=== PATIENT | female | born 1990 | race Caucasian/White ===

== ENCOUNTER 2019-09-11 23:00 | Inpatient (IN) | payer BC ==
[2019-09-11] MEDS ORDERED: LIDOCAINE 0.5% (PF) 5 MG/ML (50 ML SDV) SQ PRN (23:33)
[2019-09-11] MEDS ORDERED: OXYTOCIN 10 UNIT/ML 1 ML VIAL IM PRN (23:33)
[2019-09-11] MEDS ORDERED: CARBOPROST TROMETHAMINE 250 MCG/ML 1 ML AMP IM PRN (23:33)
[2019-09-11] MEDS ORDERED: METHYLERGONOVINE 0.2 MG/ML 1 ML AMP IM PRN (23:33)
[2019-09-11] MEDS ORDERED: TERBUTALINE 1 MG/ML VIAL SQ PRN (23:33)
[2019-09-11] MEDS: LACTATED RINGERS 1,000 ML IV SCH (23:43)
[2019-09-11] MEDS ORDERED: OXYTOCIN 30 UNITS/500 ML NS 30 UNIT in SALINE 1 500ML.BAG IV SCH (23:45)
[2019-09-11 23:53] LABS: Basophils % (A) 0 %; Eosinophils # (A) 0.2 k/uL (0-0.7); Eosinophils % (A) 2 %; HCT 35.8 % (34.0-46.0); HGB 11.7 gm/dL (11.4-16.0); Lymphocytes # (A) 2.9 k/uL (1.0-4.8); Lymphocytes % (A) 18 %; MCH 28.5 pg (25.0-35.0); MCHC 32.6 g/dL (31.0-37.0); MCV 87.4 fL (80.0-100.0); Monocytes # (A) 0.8 k/uL (0-1.0); Monocytes % (A) 5 %; Neutrophils # (A) 11.5 k/uL (1.3-7.7); Neutrophils % (A) 73 %; Platelet Count 336 k/uL (150-450); RBC 4.09 m/uL (3.80-5.40); RDW 15.5 % (11.5-15.5); WBC 15.7 k/uL (3.8-10.6)
[2019-09-12] MEDS: LACTATED RINGERS 1,000 ML IV SCH (00:13)
[2019-09-12] MEDS ORDERED: ROPIVACAINE 100 MG, fentaNYL (PF) 200 MCG in SODIUM CHLORIDE 0.9% 76 ML EPIDURAL ONE (01:00)
--- NOTE | 2019-09-12 08:42 | P.HPOB ---
History of Present Illness H&P Date: 09/12/19 Chief Complaint: 38-6/7 weeks, spontaneous rupture of membranes The patient is a 29-year-old 2 para 1001 admitted at 38-6/7 weeks by good dating parameters. She is admitted with documented spontaneous rupture of membranes in early active labor with all signs reassuring. Her has been entirely uncomplicated and group B strep status is negative. Obstetrical history: 2 para 1001 with 1 term vaginal delivery without complications. Current statistics are listed in history of present illness. EDC of 09/19/2019 was established by last menstrual period and confirmed by second trimester ultrasound. Laboratory workup demonstrates a bloo d type of A+ with a negative antibody screen. Rubella status is immune. The remainder of the laboratory workup was within normal limits. One hour Glucola was normal and group B strep status is negative. Gynecologic history: Unremarkable with no history of any infections to include STDs. Review of Systems Review of systems is confined to history of present illness. Past Medical History Past Medical History: No Reported History History of Any Multi-Drug Resistant Organisms: None Reported Past Surgical History: No Surgical Hx Reported Additional Past Surgical History / Comment(s): wisdom teeth Past Anesthesia/Blood Transfusion Reactions: No Reported Reaction Past Psychological History: No Psychological Hx Reported Smoking Status: Never smoker Past Alcohol Use History: None Reported Past Drug Use History: None Reported - Past Family History Father Family Medical History: Renal Disease Additional Family Medical History / Comment(s): has one kidney Medications and Allergies Home Medications Medication Instructions Recorded Confirmed Type Ferrous Sulfate [Iron] 325 mg PO DAILY 09/11/19 09/11/19 History Pnv,Calcium 72/Iron/Folic Acid 1 each PO DAILY 09/11/19 09/11/19 History [ Plus Tablet] Allergies Allergy/AdvReac Type Severity Reaction Status Date / Time amoxicillin Allergy Rash/Hives Verified 09/11/19 23:30 cetirizine [From Zyrtec] Allergy Rash/Hives Verified 09/11/19 23:30 sulfamethoxazole Allergy Rash/Hives Verified 09/11/19 23:30 [From Bactrim] trimethoprim [From Bactrim] Allergy Rash/Hives Verified 09/11/19 23:30 Exam Vital Signs Temp Pulse Resp BP Pulse Ox 09/11/19 23:32 96.9 F L 88 17 138/73 98 09/11/19 23:30 96.9 F L 88 17 138/73 98 Intake and Output 09/11/19 09/12/19 09/12/19 22:59 06:59 14:59 Intake Total 2000 Output Total 500 Balance 1500 Intake: IV 2000 Output: Urine 500 Straight 500 Other: # Voids 2 Weight 82.554 kg In general, this is a well-developed, well-nourished white female in no acute distress. Her heart has a regular rhythm and rate without murmur. Her lungs are clear to auscultation bilaterally in all purdy. Her abdomen is gravid, nondistended, has normal active bowel sounds, is soft, nontender, and without any palpable masses aside from the uterine fundus. Her extremities are without any cyanosis, clubbing, or significant edema and are nontender to palpation bilaterally. Digital cervical examination most recently demonstrates her cervix to be 7 cm dilated, approximate 80% effaced, the vertex in presentation at -2 station. Spontaneous rupture of membranes has been documented. Results Result Diagrams: 09/11/19 23:40 Abnormal Lab Results - Last 24 Hours (Table) 09/11/19 Range/Units 23:40 WBC 15.7 H (3.8-10.6) k/uL Neutrophils # 11.5 H (1.3-7.7) k/uL Assessment and Plan (1) Active labor at term Current Visit: Yes Status: Acute Code(s): THQ0645 - SNOMED Code(s): 06168527 (2) Spontaneous rupture of membranes Current Visit: Yes Status: Acute Code(s): XEY0772 - SNOMED Code(s): 811305414 Plan: The patient has been admitted for active management of labor. She had requested an epidural which was placed shortly after admission. Her contractions then did space out through the night requiring Pitocin augmentation this morning. She will continue to have close maternal and surveillance and expectant management will be practiced.
[2019-09-12] MEDS ORDERED: BENZOCAINE/MENTHOL SPRAY 1 GM/SPRAY AEROSOL TOPICAL PRN (10:29)
[2019-09-12] MEDS ORDERED: SIMETHICONE 80 MG CHEWABLE PO PRN (10:29)
[2019-09-12] MEDS ORDERED: ACETAMINOPHEN TAB 325 MG TAB PO PRN (10:29)
[2019-09-12] MEDS ORDERED: IBUPROFEN 600 MG TAB PO PRN (10:29)
[2019-09-12] MEDS ORDERED: diphenhydrAMINE 25 MG CAP PO PRN (10:29)
[2019-09-12] MEDS ORDERED: HYDROcodone/APAP 5-325MG 1 EACH TAB PO PRN (10:29)
[2019-09-12] MEDS ORDERED: HYDROcodone/APAP 7.5-325MG 1 EACH TAB PO PRN (10:29)
[2019-09-12] MEDS ORDERED: ZOLPIDEM 5 MG TAB PO PRN (10:29)
[2019-09-12] MEDS ORDERED: LANOLIN CREAM 5 GM TUBE TOPICAL PRN (10:29)
[2019-09-12] MEDS ORDERED: diphenhydrAMINE 50 MG CAP PO PRN (10:29)
[2019-09-12] MEDS ORDERED: WITCH HAZEL 1 EACH MED..PAD TOPICAL PRN (10:29)
[2019-09-12] MEDS ORDERED: HYDROCORTISONE 2.5% RECTAL CREAM 30 GM TUBE RECTAL PRN (10:29)
[2019-09-12] MEDS ORDERED: diphenhydrAMINE 50 MG/ML 1 ML VIAL IVP PRN ×2 (10:29)
[2019-09-12] MEDS ORDERED: OXYTOCIN 20 UNITS/1000 ML NS 1,000 ML IV SCH (10:30)
--- NOTE | 2019-09-12 10:32 | P.PROBDLV ---
Vaginal Delivery Note - . Vaginal Delivery Note: The patient is a 29-year-old 2 para 1001 admitted at 39-6/7 weeks by good dating parameters. She is admitted for spontaneous rupture of membranes in early active labor with all signs reassuring. Her has been entirely uncomplicated and group B strep status is negative. On labor and delivery, she had an epidural catheter placed for analgesia after which time her contraction pattern spaced out. After several hours through the night with minimal co ntractions, she had Pitocin augmentation started early this morning. She began to have increased contraction pattern and ultimately progressed then to complete and 0 station. She pushed over the course of approximately 10 minutes to a normal spontaneous vaginal delivery of a viable 7 lbs. 3 oz. baby girl with Apgars of 9 at 1 minute and 9 at 5 minutes delivered in the left occiput anterior position. The placenta was delivered spontaneously, intact, and grossly normal with a grossly normal, centrally inserted three-vessel cord. There were no lacerations of the perineum, vagina, or cervix. Estimated blood loss for the entire case was approximately 200 mL. There were no complications. All sponge, instrument, and needle counts were correct. Both mother and are resting comfortably in recovery.
[2019-09-12] MEDS: SENNOSIDES-DOCUSATE SODIUM 1 EACH TAB PO SCH (20:52)
[2019-09-13] MEDS: SENNOSIDES-DOCUSATE SODIUM 1 EACH TAB PO SCH (08:06)
[2019-09-13 09:26] VITALS: RESP 20
--- NOTE | 2019-09-13 10:14 | P.DS ---
Providers Date of admission: 09/11/19 23:20 Expected date of discharge: 09/13/19 Attending physician: Jennifer Forrest Primary care physician: Stated None - Discharge Diagnosis(es) (1) Active labor at term Current Visit: Yes Status: Acute (2) Spontaneous rupture of membranes Current Visit: Yes Status: Acute (3) Normal spontaneous vaginal delivery Current Visit: No Status: Acute Hospital Course: The patient is a 29-year-old 2 para 1001 admitted at 38-6/7 weeks by good dating parameters perches admitted with documented spontaneous rupture of membranes in early labor with all signs reassuring. Her was uncomplicated and group B strep status is negative. On labor and delivery, she had an epidural catheter placed for analgesia and then her contractions significantly spaced out. She ultimately required Pitocin augmentation and then progressed to complete where after she pushed to a normal spontaneous vaginal delivery of a viable 7 lbs. 3 oz. baby girl with Apgars of 9 at 1 minute and 9 at 5 minutes. Her course was unremarkable vital signs remaining stable and her temperature was afebrile throughout. She was deemed stable for discharge on day #1 was discharged home to follow-up in the office in 6 weeks' time routinely. Discharge instructions included calling for any significantly increased bleeding or foul-smelling lochia, significantly increased fever or abdominal pain, perineal complaints, breast complaints, or anything else that concerned her. She was additionally instructed to have nothing in the vagina for at least 6 weeks time to include intercourse. She understood all of her instructions and agrees to follow up as noted above. Discharge medications included only continue vitamins as she has opted to breast-feed. She was otherwise to use [id number] analgesic pain medications as needed. Maternal blood type is A+ and rubella status is immune. Procedures: #1. Epidural analgesia #2. Pitocin augmentation #3. Normal spontaneous vaginal delivery Patient Condition at Discharge: Good Plan - Discharge Summary New Discharge Prescriptions: No Action Pnv,Calcium 72/Iron/Folic Acid [ Plus Tablet] 1 each PO DAILY Ferrous Sulfate [Iron] 325 mg PO DAILY Discharge Medication List Ferrous Sulfate [Iron] 325 mg PO DAILY 09/11/19 [History] Pnv,Calcium 72/Iron/Folic Acid [ Plus Tablet] 1 each PO DAILY 09/11/19 [History] Follow up Appointment(s)/Referral(s): Jennifer Forrest MD [STAFF PHYSICIAN] - 6 Weeks Discharge Disposition: HOME SELF-CARE
[2019-09-13 15:52] VITALS: BP 106/62; PULSE 75; TEMP 97.6
== END 2019-09-13 18:30 | disposition home or self-care (01) | DRG 807 ==
LOC: FBPOP 23:00 → 4FBP 23:20
PROVIDERS: ADMIT Obstetrics & Gynecology; ATTEND Obstetrics & Gynecology
PROC: 10E0XZZ Delivery of Products of Conception, External Approach (ICD-10-PCS; principal; 2019-09-12)
PROC: 3E0R3BZ Introduction of Anesthetic Agent into Spinal Canal, Percutaneous Approach (ICD-10-PCS; 2019-09-12)
DX: O99.62 Diseases of the digestive system complicating childbirth (principal); Z37.0 Single live birth; K92.89 Other specified diseases of the digestive system; Z3A.38 38 weeks gestation of pregnancy; Z79.899 Other long term (current) drug therapy; Z88.0 Allergy status to penicillin; Z88.2 Allergy status to sulfonamides; Z88.8 Allergy status to other drugs, medicaments and biological substances; Z80.1 Family history of malignant neoplasm of trachea, bronchus and lung; Z80.3 Family history of malignant neoplasm of breast; Z80.52 Family history of malignant neoplasm of bladder
CPT/HCPCS: 59025; 84112; 85025; 86850; 86900; 86901; 99213

== ENCOUNTER → 2019-09-11 | Outpatient (CLI) | payer BC | END | disposition home or self-care (01) | LOC: LABWHC1 09:40 → MERGE 09:40 | PROVIDERS: ATTEND Obstetrics & Gynecology | DX: Z11.59 Encounter for screening for other viral diseases (principal) ==

== ENCOUNTER 2020-06-30 10:40 | Day surgery (SDC) | payer BC ==
[2020-06-29 11:10] VITALS: BMI 24.3
[2020-06-30] MEDS ORDERED: ONDANSETRON 4 MG/2 ML VIAL ONE (11:18)
[2020-06-30] MEDS ORDERED: ONDANSETRON 4 MG/2 ML VIAL IVP ONE (11:25)
[2020-06-30] MEDS ORDERED: DEXAMETHASONE SOD PHOSPHATE 4 MG/ML 1 ML VIAL IVP ONE (11:28)
[2020-06-30] MEDS ORDERED: LACTATED RINGERS 1,000 ML IV ONE (11:29)
[2020-06-30] MEDS ORDERED: LIDOCAINE 1% (10MG/ML) FOR IV START INTRADERMA ONE (11:30)
[2020-06-30] MEDS ORDERED: fentaNYL (PF) 50 MCG/ML 2 ML AMP ONE (13:22)
[2020-06-30] MEDS ORDERED: LIDOCAINE 1% INJ 10MG/ML (20 ML MDV) ONE (13:22)
[2020-06-30] MEDS ORDERED: SUCCINYLCHOLINE CHLORIDE 100 MG/5 ML SYR IV ONE (13:22)
[2020-06-30] MEDS ORDERED: PROPOFOL 10 MG/ML 20 ML VIAL IV ONE (13:22)
[2020-06-30] MEDS ORDERED: MIDAZOLAM 2 MG/2 ML VIAL ONE (13:22)
[2020-06-30] MEDS ORDERED: BUPIVACAINE (PF) 0.5% 30 ML VIAL SQ ONE (13:53)
--- NOTE | 2020-06-30 14:30 | XR ---
Fluoroscopy INDICATION: Pain FINDINGS: Fluoroscopy time: 0 seconds. Images obtained: 1. IMPRESSIONS: 1. Documentation of fluoroscopy.
--- NOTE | 2020-06-30 14:31 | FL ---
Fluoroscopy INDICATION: Pain FINDINGS: Fluoroscopy time: 2 seconds. Images obtained: 0. IMPRESSIONS: 1. Documentation of fluoroscopy.
[2020-06-30 14:38] VITALS: TEMP 97.2
--- NOTE | 2020-06-30 14:45 | P.OP ---
Date of Procedure: 06/30/20 Preoperative Diagnosis: Displaced spiral oblique fifth metatarsal fracture right foot Postoperative Diagnosis: Same Procedure(s) Performed: Open reduction with internal fixation of right fifth metatarsal fracture Implants: 2.0 locking and nonlocking screws. 7-hole Medline plate Anesthesia: GRACE Surgeon: William Mott Estimated Blood Loss (ml): 2 Pathology: none sent Condition: stable Disposition: PACU Indications for Procedure: Displaced fifth metatarsal fracture right foot Description of Procedure: The patient was brought into the operating room and placed on the table supine position. Timeout was taken to confirm correct patient identifiers, correct procedure, and correct site of surgery. When all members of the room were agreeable with the Timeout, the patient was placed under general anesthetic. A well-padded tourniquet was placed on the right midcalf, keeping 3-4 inches distal to the fibular neck. A wedge was placed underneath the right hip to internally rotate the right leg. Then 20 mL of 0.5% Marcaine was injected as a posterior tibial nerve block as well as a forefoot block. Prepped and draped in the usual manner The foot was exsanguinated and the tourniquet inflated to 250 mmHg. Attention was directed over the dorsal lateral aspect of the right foot, where a linear incision was made tween the neurovascular structures and the long extensor tendon to the fifth digit. The incision was deepened down and through the subcutaneous layer, careful to identify, avoid, and retract any neurovascular structures and cauterize any bleeding vessels. Dissection was carried down to level of periosteum which was then removed off the area of the fracture. The fracture fragments were distracted in any interposing hematoma and soft tissue were sharply removed. Bone reduction forceps were then used to reduce the fracture. Fluoroscopic imaging confirmed near anatomical alignment. A 2.0 nonlocking screw was then inserted from lateral to medial perpendicular to the fracture line. The screw compressed the fracture. The reduction forceps were removed and fluoroscopy was used to make sure that the alignment was correct. A 7 hole plate from the 2.0 screw set by Medline was then positioned on the dorsolateral aspect of the fifth metatarsal. Under live fluoroscopy was manipulated until it was in the right position and then temporarily fixated. 2.0 locking screws were placed in the metatarsal shaft proximal to the fracture first. Then 2.0 locking screws were placed in the most distal holes of the plate. The last hole was another distal screw which was a 2.0 locking screw. All the screw holes would interfere with the fixation from the interfragmentary screw or the fracture. Final fluoroscopic imaging showed acceptable alignment of the fracture with maintained length and proper position of all hardware. The wound is irrigated with antibiotic saline. Deep closure was done with 2-0 Vicryl, subcu closure done with 4-0 Monocryl, and skin closure done with 4-0 stratafix utilizing a subcuticular stitch. Skin glue was applied and allowed to dry. Then Steri- Strips are placed over the incision along with Adaptic and a dry sterile dressing. It was released and capillary refill time return to all digits of the right foot. Then the patient was placed in a fracture boot with ankle neutral position. Anesthesia was reversed and the patient was taken recovery with vital signs stable.
[2020-06-30 15:18] VITALS: RESP 16
[2020-06-30 16:46] VITALS: BP 120/67; PULSE 70
== END 2020-06-30 16:10 | disposition home or self-care (01) ==
LOC: OR 10:40
PROVIDERS: ATTEND Podiatrist
DX: S92.351A Displaced fracture of fifth metatarsal bone, right foot, initial encounter for closed fracture (principal); G43.909 Migraine, unspecified, not intractable, without status migrainosus; Z88.1 Allergy status to other antibiotic agents; Z88.0 Allergy status to penicillin
CPT/HCPCS: 81025; 73620; 28485; C1713; J2250; J1100; J0690; J2405; J2001; J3010; J0330; J2704

== ENCOUNTER → 2021-11-22 | Outpatient (CLI) | payer BC | END | disposition home or self-care (01) | LOC: LABWHC1 11:38 | PROVIDERS: ATTEND Obstetrics & Gynecology | DX: Z33.1 Pregnant state, incidental (principal) | CPT/HCPCS: 36415; 82950 ==

== ENCOUNTER 2022-02-14 06:14 | Inpatient (IN) | payer BC ==
[2022-02-14] MEDS ORDERED: TERBUTALINE 1 MG/ML VIAL SQ PRN (06:31)
[2022-02-14] MEDS ORDERED: LIDOCAINE 0.5% (PF) 5 MG/ML (50 ML SDV) SQ PRN (06:31)
[2022-02-14] MEDS ORDERED: CLINDAMYCIN 900 MG in DEXTROSE 5% IN WATER 50 ML IVPB STA ×2 (06:31)
[2022-02-14] MEDS: LACTATED RINGERS 1,000 ML IV SCH ×2 (06:37→08:30)
[2022-02-14] MEDS ORDERED: OXYTOCIN 30 UNITS/500 ML NS 30 UNIT in SALINE 1 500ML.BAG IV SCH (06:45)
[2022-02-14 06:46] LABS: Basophils # (A) 0.1 k/uL (0-0.2); Basophils % (A) 0 %; Eosinophils # (A) 0.2 k/uL (0-0.7); Eosinophils % (A) 2 %; HCT 33.7 % (34.0-46.0); HGB 11.1 gm/dL (11.4-16.0); Lymphocytes # (A) 2.9 k/uL (1.0-4.8); Lymphocytes % (A) 27 %; MCH 28.1 pg (25.0-35.0); Mean Platelet Volume 8.6; Monocytes # (A) 0.6 k/uL (0-1.0); Monocytes % (A) 5 %; Neutrophils # (A) 6.5 k/uL (1.3-7.7); Neutrophils % (A) 62 %; Platelet Count 343 k/uL (150-450); RBC 3.96 m/uL (3.80-5.40); RDW 13.7 % (11.5-15.5); WBC 10.6 k/uL (3.8-10.6)
--- NOTE | 2022-02-14 08:02 | P.HPOB ---
History of Present Illness H&P Date: 02/14/22 Chief Complaint: For elective induction of labor with advanced cervical dila tation This is a 31-year-old female 3 para 2001 EDC 02/16/2022 at 39-5/7 weeks' gestation was noted to be 5 cm in the office, and is here for induction of labor. Fetus is been active throughout the . She denies vaginal bleeding or fluid leakage. Past medical history is essentially negative. Past surgical history wisdom teeth extracted, benign mole removal, foot surgery, dental implants. Current medications vitamins daily. ALLERGIES amoxicillin, Bactrim, and Zyrtec to all of which she reports a rash and itching. Family history significant for bladder cancer, breast cancer, lung cancer. Obstetric history significant for normal spontaneous vaginal deliveries 2, healthy female , unremarkable. Social history patient is , her cried is present. She denies alcohol, drug use, or smoking. Obstetric history is significant for blood type O A+, rubella status immune. VDRL testing, urine culture, gonorrhea and chlamydia cultures, hepatitis B surface antigen, HIV testing all negative. One-hour Glucola 137. Group B strep cultures positive. On exam patient is 5 foot 8 inches, 183 pounds, vital signs are stable including blood pressure 116/74, pulse 75. The general physical exam is within normal limits. Reveal no edema. Chest is clear. Cervix is 6-7 cm dilated, 80% effaced, -1 station, vertex presentation. Artificial amniorrhexis reveals very light meconium-stained fluid. heart rate is consistent with reactive NST, baseline 140. Impression: 39-5/7 weeks intrauterine , here for induction of labor with advanced cervical dilatation, positive group B strep cultures, light meconium-stained fluid. All signs otherwise reassuring. Plan: Oxytocin per hospital protocol. Antibiotic prophylaxis has artery been i nstituted. Analgesic options reviewed. Patient choosing epidural, anesthesia team aware. Continue close maternal and surveillance. Anticipate normal spontaneous vaginal delivery. Review of Systems Constitutional: Reports as per HPI Past Medical History Past Medical History: No Reported History Additional Past Medical History / Comment(s): hx migraines, fx bone rt foot 06/24/20, History of Any Multi-Drug Resistant Organisms: None Reported Past Surgical History: No Surgical Hx Reported Additional Past Surgical History / Comment(s): wisdom teeth Past Anesthesia/Blood Transfusion Reactions: No Reported Reaction Past Psychological History: No Psychological Hx Reported Smoking Status: Never smoker Past Alcohol Use History: None Reported, Rare Past Drug Use History: None Reported - Past Family History Father Additional Family Medical History / Comment(s): has one kidney Mother Family Medical History: No Reported History Medications and Allergies Home Medications Medication Instructions Recorded Confirmed Type Aspirin 1 tab PO DAILY 10/28/21 02/14/22 History Pnv,Calcium 72/Iron/Folic Acid 1 tab PO DAILY 10/28/21 02/14/22 History [Westab Plus Tablet] Allergies Allergy/AdvReac Type Severity Reaction Status Date / Time amoxicillin Allergy Rash/Hives Verified 10/28/21 13:49 cetirizine [From Zyrtec] Allergy Rash/Hives Verified 10/28/21 13:49 sulfamethoxazole Allergy Rash/Hives Verified 10/28/21 13:49 [From Bactrim] trimethoprim [From Bactrim] Allergy Rash/Hives Verified 10/28/21 13:49 Exam Vital Signs Temp Pulse Resp BP 02/14/22 07:16 97 F L 75 16 116/74 Intake and Output 02/13/22 02/14/22 02/14/22 22:59 06:59 14:59 Other: Weight 83.007 kg 83.007 kg See dictation under HPI please Results Result Diagrams: 02/14/22 06:31 Abnormal Lab Results - Last 24 Hours (Table) 02/14/22 Range/Units 06:31 Hgb 11.1 L (11.4-16.0) gm/dL Hct 33.7 L (34.0-46.0) % Assessment and Plan Assessment: 39-5/7 weeks intrauterine , positive group B strep cultures, light meconium-stained fluid, advanced cervical dilatation. All signs otherwise reassuring. Plan: Antibiotic prophylaxis has been instituted. Patient is requesting epidural, and anesthesia team is aware. Oxytocin per hospital protocol. Close maternal and surveillance. Anticipate normal spontaneous vaginal delivery. Time with Patient: Less than 30
[2022-02-14] MEDS ORDERED: SODIUM CHLORIDE 0.9% 100 ML BAG ONE (08:13)
[2022-02-14] MEDS ORDERED: fentaNYL (PF) 50 MCG/ML 5 ML AMP ONE (08:13)
[2022-02-14] MEDS ORDERED: ROPIVACAINE 5 MG/ML 20 ML AMPULE ONE (08:13)
[2022-02-14] MEDS ORDERED: ACETAMINOPHEN TAB 325 MG TAB PO PRN (09:34)
[2022-02-14] MEDS ORDERED: LANOLIN CREAM 5 GM TUBE TOPICAL PRN (09:34)
[2022-02-14] MEDS ORDERED: HYDROCORTISONE 2.5% RECTAL CREAM 30 GM TUBE RECTAL PRN (09:34)
[2022-02-14] MEDS ORDERED: BENZOCAINE/MENTHOL SPRAY 1 GM/SPRAY AEROSOL TOPICAL PRN (09:34)
[2022-02-14] MEDS ORDERED: ZOLPIDEM 5 MG TAB PO PRN (09:34)
[2022-02-14] MEDS ORDERED: SIMETHICONE 80 MG CHEWABLE PO PRN (09:34)
[2022-02-14] MEDS ORDERED: diphenhydrAMINE 25 MG CAP PO PRN (09:34)
--- NOTE | 2022-02-14 09:34 | P.PROBDLV ---
Vaginal Delivery Note - . Vaginal Delivery Note: This is a 31-year-old female 3 para 2001 EDC 02/16/2022 at 39-5/7 weeks' gestation who presented for induction with favorable multiparous cervix. Positive group B strep cultures, blood type B positive, rubella status immune. Please see my dictated history and physical for details. Artificial amniorrhexis revealed light meconium-stained fluid. Oxytocin was started and titrated. Epidural was placed per her request. She progressed very rapidly and became completely dilated at 0920 hours. Perineal body was prepped and draped in usual sterile fashion. Please note that the heart tones were reassuring throughout the first and second stages of labor. With excellent maternal expulsive efforts the head easily crowned in the occiput anterior position. There was no nuchal cord noted. The right or anterior shoulder was gently delivered from underneath the pubic symphysis at which time the oropharynx, nasopharynx, and external nares were all thoroughly bulb suctioned. Patient was officially delivered of a liveborn female at 0922 hours. Umbilical cord was doubly clamped and ligated, she was handed to waiting nurses for evaluation where scores of 9 and 10 at one and 5 minutes respectively were given. The placenta delivered spontaneously, it was inspected and noted to be intact with trivascular cord at 0924 hours. At this time the uterus is massaged. Careful inspection of the cervix, vagina, perineum, periurethral, and perirectal areas revealed no lacerations or defects. Perineal body clean and dry upon completion of delivery. Estimated blood loss 200 mL's. weighed 8 lbs. 4 oz. or 3625 g. The patient and her are allowed to begin the bonding experience in the LDR. Please note that antibiotics were given 1 dose for positive group B strep cultures.
[2022-02-14] MEDS ORDERED: CLINDAMYCIN 900 MG in DEXTROSE 5% IN WATER 50 ML IVPB SCH ×2 (14:45)
[2022-02-14] MEDS: IBUPROFEN 600 MG TAB PO SCH ×3 (15:41→19:52)
[2022-02-14] MEDS ORDERED: IBUPROFEN 600 MG TAB PO PRN (19:53)
[2022-02-14] MEDS: SENNOSIDES-DOCUSATE SODIUM 1 EACH TAB PO SCH (20:06)
--- NOTE | 2022-02-15 07:04 | P.PN ---
Subjective Progress Note Date: 02/15/22 Principal diagnosis: day #1, doing well No pain. Voiding and ambulating without difficulty. Passing flatus. Objective - Vital Signs Vital signs: Vital Signs Temp 98.1 F 02/15/22 00:00 Pulse 73 02/15/22 00:00 Resp 14 02/15/22 00:00 BP 114/56 02/15/22 00:00 Pulse Ox 96 02/15/22 00:00 FiO2 Intake & Output 02/14/22 02/15/22 02/15/22 18:59 06:59 18:59 Output Total 460 Balance -460 Weight 83.007 kg Output: Estimated Blood Loss 200 Output, Quantitative 260 Blood Loss Other: # Voids 1 2 - Constitutional General appearance: Present: average body habitus, cooperative - EENT Eyes: Present: PERRLA ENT: Present: hearing grossly normal - Respiratory Respiratory: bilateral: CTA - Cardiovascular Rhythm: regular - Gastrointestinal Gastrointestinal Comment(s): Fundus firm, midline, symmetric, 18 week size, nontender. General gastrointestinal: Present: normal bowel sounds - Genitourinary Genitourinary Comment(s): Perineum clean and dry - Integumentary Integumentary: Present: normal - Neurologic Neurologic: Present: CNII-XII intact - Musculoskeletal Musculoskeletal: Present: gait normal, strength equal bilaterally - Psychiatric Psychiatric: Present: A&O x's 3, appropriate affect, intact judgment & insight - Labs CBC & Chem 7: 02/14/22 06:31 Assessment and Plan Assessment: Doing well first day Plan: is to be monitored for another 24 hours due to be strep culture status. Continue care. Discharge home tomorrow. Time with Patient: Less than 30
[2022-02-15] MEDS: SENNOSIDES-DOCUSATE SODIUM 1 EACH TAB PO SCH ×2 (08:50→22:18)
[2022-02-16] MEDS: SENNOSIDES-DOCUSATE SODIUM 1 EACH TAB PO SCH (08:31)
[2022-02-16 08:43] VITALS: RESP 16; TEMP 98.2
--- NOTE | 2022-02-16 08:54 | P.DS ---
Providers Date of admission: 02/14/22 06:14 Expected date of discharge: 02/16/22 Attending physician: Jennifer Forrest Primary care physician: Stated None Hospital Course: This is a 31-year-old female 3 para 2001 EDC 02/16/2022 at 39-5/7 weeks' gestation. Patient presented for induction with favorable cervix. Thin meconium-stained fluid was noted. Group B strep cultures positive, 1 dose of antibiotics were given prior to delivery. Rubella status immune. Blood type A+. Please see dictated history and physical for details. With the aid of an epidural and oxytocin augmentation patient went on to deliver swiftly a liveborn female with scores of 9 and 10 at one and 5 minutes respectively. She weighed 3625 g, or 8 lbs. 0 oz. No perineal lacerations were encountered. Estimated blood loss 200 mL's. Please see dictated delivery note for details. was taken to the nursery for antibiotics. She is doing well. Patient is judged to be in excellent condition for discharge home. She will follow-up with me in the office in 6 weeks. I have reminded her no intercourse, tampons or douching. She will use [id number] Advil or Aleve, or Motrin as needed for pain. She will call with any fevers shakes or chills, foul smelling or copious lochia, with the passage of large blood clots, or indeed with any difficulties or issues or concerns. infant will follow-up with dry house operator as per recommendations. Assessment: Doing well second day Patient Condition at Discharge: Good Plan - Discharge Summary Discharge Rx Participant: No New Discharge Prescriptions: No Action Pnv,Calcium 72/Iron/Folic Acid [Westab Plus Tablet] 1 tab PO DAILY Aspirin 1 tab PO DAILY Discharge Medication List Aspirin 1 tab PO DAILY 10/28/21 [History] Pnv,Calcium 72/Iron/Folic Acid [Westab Plus Tablet] 1 tab PO DAILY 10/28/21 [History] Follow up Appointment(s)/Referral(s): Jennifer Forrest MD [STAFF PHYSICIAN] - 6 Weeks Discharge Disposition: HOME SELF-CARE
[2022-02-16 15:56] VITALS: BP 124/79; PULSE 78
== END 2022-02-16 18:17 | disposition home or self-care (01) | DRG 807 ==
LOC: 4FBP 06:14
PROVIDERS: ADMIT Obstetrics & Gynecology; ATTEND Obstetrics & Gynecology
PROC: 10E0XZZ Delivery of Products of Conception, External Approach (ICD-10-PCS; principal; 2022-02-14)
PROC: 3E033VJ Introduction of Other Hormone into Peripheral Vein, Percutaneous Approach (ICD-10-PCS; principal; 2022-02-14)
DX: O77.0 Labor and delivery complicated by meconium in amniotic fluid (principal); Z37.0 Single live birth; O99.824 Streptococcus B carrier state complicating childbirth; Z3A.39 39 weeks gestation of pregnancy; Z79.82 Long term (current) use of aspirin; Z88.0 Allergy status to penicillin; Z88.2 Allergy status to sulfonamides; Z28.310 Unvaccinated for COVID-19; Z28.21 Immunization not carried out because of patient refusal
CPT/HCPCS: 85025; 86850; 86900; 86901

== ENCOUNTER 2023-02-25 19:23 | Emergency (ER) | payer BC ==
[2023-02-25 19:31] VITALS: RESP 18
[2023-02-25] MEDS ORDERED: ONDANSETRON 4 MG/2 ML VIAL IVP STA (20:08)
[2023-02-25] MEDS ORDERED: KETOROLAC 15 MG/ML 1 ML VIAL IVP STA (20:08)
[2023-02-25] MEDS ORDERED: SODIUM CHLORIDE 0.9% 1,000 ML IV ONE (20:08)
--- NOTE | 2023-02-25 20:11 | ED ---
General Adult HPI - General Chief complaint: Back Pain/Injury Stated complaint: Back Pain Time Seen by Provider: 02/25/23 19:42 Source: patient, RN notes reviewed Mode of arrival: ambulatory Limitations: no limitations - History of Present Illness Initial comments: 32-year-old male with no significant past medical history presents to the emergency department with a chief complaint of right flank pain. Patient reports right lower leg pain that radiates to the right lower quadrant. She reports an onset approximately 12 PM. She reports the pain is progressively gotten worse and sharp. She is complaining of accompanying symptoms of fever, chills, nausea. Denies any dysuria, hematuria, vaginal bleeding or cramping. Last menstrual period was . Last bowel movement 2 days ago. Patient denies history of cholecystectomy or appendectomy - Related Data Home Medications Medication Instructions Recorded Confirmed Aspirin 1 tab PO DAILY 10/28/21 02/14/22 Pnv,Calcium 72/Iron/Folic Acid 1 tab PO DAILY 10/28/21 02/14/22 [[place]ab Plus Tablet] Allergies Allergy/AdvReac Type Severity Reaction Status Date / Time amoxicillin Allergy Rash/Hives Verified 02/25/23 19:28 cetirizine [From Zyrtec] Allergy Rash/Hives Verified 02/25/23 19:28 sulfamethoxazole Allergy Rash/Hives Verified 02/25/23 19:28 [From Bactrim] trimethoprim [From Bactrim] Allergy Rash/Hives Verified 02/25/23 19:28 Review of Systems ROS Statement: Those systems with pertinent positive or pertinent negative responses have been documented in the HPI. ROS Other: All systems not noted in ROS Statement are negative. Past Medical History Past Medical History: No Reported History Additional Past Medical History / Comment(s): hx migraines, fx bone rt foot 06/24/20, History of Any Multi-Drug Resistant Organisms: None Reported Past Surgical History: No Surgical Hx Reported Additional Past Surgical History / Comment(s): wisdom teeth Past Anesthesia/Blood Transfusion Reactions: No Reported Reaction Past Psychological History: No Psychological Hx Reported Smoking Status: Never smoker Past Alcohol Use History: Rare Past Drug Use History: None Reported - Past Family History Father Additional Family Medical History / Comment(s): has one kidney Mother Family Medical History: No Reported History General Exam - General Exam Comments Initial Comments: General: Alert, in no acute distress Head: atraumatic normocephalic. Eyes PERRL, EOMI intact, mucous membranes moist Respiratory: Lungs clear to auscultation bilaterally Cardiovascular: Heart rate regular rate and Abdominal: Soft without guarding or rebound, right lower quadrant tenderness. Negative Rovsing sign, mild right CVA tenderness Extremities: Normal inspection with full range of motion and normal capillary refill Neuroogic: alert and oriented 3, CN II-XII intact, able to ambulate with steady gait Skin: warm dry and intact with normal color Limitations: no limitations Course Vital Signs 02/25/23 02/25/23 02/25/23 19:27 21:00 22:00 Temperature 97.9 F 98.0 F Pulse Rate 69 74 78 Respiratory 18 18 18 Rate Blood Pressure 131/89 128/74 133/85 O2 Sat by Pulse 100 99 97 Oximetry Medical Decision Making - Medical Decision Making Was pt. sent in by a medical professional or institution (, [facility], [employer], urgent care, hospital, or senior living...) When possible be specific @ -[No] Did you speak to anyone other than the patient for history (EMS, parent, family, police, friend...)? What history was obtained from this source @ -[No] Did you review nursing and triage notes (agree or disagree)? Why? @ -[I reviewed and agree with nursing and triage notes] Were old charts reviewed (outside hosp., previous admission, EMS record, old EKG, old radiological studies, urgent care reports/EKG's, senior living records)? Report findings @ -[No old charts were reviewed] Differential Diagnosis (chest pain, altered mental status, abdominal pain women, abdominal pain men, vaginal bleeding, weakness, fever, dyspnea, syncope, headache, dizziness, GI bleed, back pain, seizure, CVA, palpatations, mental health, musculoskeletal)? @ -[not applicable] EKG interpreted by me (3pts min.). @ -[As above] X-rays interpreted by me (1pt min.). @ -[None done] CT interpreted by me (1pt min.). @ -CT abdomen and pelvis does not reveal any evidence of nephrolithiasis. There is moderate amount of right lower for him. No evidence of appendicitis. U/S interpreted by me (1pt. min.). @ -[None done] What testing was considered but not performed or refused? (CT, X-rays, U/S, labs)? Why? @ -[None] What meds were considered but not given or refused? Why? @ -[None] Did you discuss the management of the patient with other professionals (p diannefeannmarieionals i.e. , PA, INS[employer] SALES TRAINER, lab, RT, psych nurse, web content & social media manager, raw silk grader, teacher, admitting officer, counseling case manager)? Give summary @ -[No] Was smoking cessation discussed for >3mins.? @ -[No] Was critical care preformed (if so, how long)? @ -[No] Were there social determinants of health that impacted care today? How? (Homelessness, low income, unemployed, alcoholism, drug addiction, tr ansportation, low edu. Level, literacy, decrease access to med. care, penitentiary, rehab)? @ -[No] Was there de-escalation of care discussed even if they declined (Discuss DNR or withdrawal of care, Hospice)? DNR status @ -[No] What co-morbidities impacted this encounter? (DM, HTN, Smoking, COPD, CAD, Cancer, CVA, ARF, Chemo, Hep., AIDS, mental health diagnosis, sleep apnea, morbid obesity)? @ -[None] Was patient admitted / discharged? Hospital course, mention meds given and route, prescriptions, significant lab abnormalities, going to OR and other pertinent info. @ Discharged. This is a 32-year-old female presents emergency Department with chief complaint of flank pain. Patient had a thorough history and physical exam performed on the ED. Physical exam is essentially unremarkable. Vital signs are stable. Heart rate regular rate and rhythm, lung s clear to auscultation bilaterally abdomen soft with mild RLQ abdominal tenderness. There are no focal neuro deficits noted upon exam. Patient is resting comfortably in the stretcher able to move about freely. Patient had CT imaging and laboratory studies which was negative. I discussed the results in detail with the patient verbalized understanding all questions were addressed. Patient provided 1 L IV fluids, Toradol, Zofran with symptomatic improvement. Return precautions discussed. Recommend close follow-up with PCP in 2-3 days Patient discharged in stable condition. Case discussed with MADELEINE Cohn who agrees with plan of care Undiagnosed new problem with uncertain prognosis? @ -[No] Drug Therapy requiring intensive monitoring for toxicity (Heparin, Nitro, Insulin, Cardizem)? @ -[No] Were any procedures done? @ -[No] Diagnosis/symptom? @ -RLQ abdominal pain - Constipation Acute, or Chronic, or Acute on Chronic? @ -Acute Uncomplicated (without systemic symptoms) or Complicated (systemic symptoms)? @ -Uncomplicated Side effects of treatment? @ -[No] Exacerbation, Progression, or Severe Exacerbation? @ -[No] Poses a threat to life or bodily function? How? (Chest pain, USA, ME, pneumonia, PE, COPD, DKA, ARF, appy, cholecystitis, CVA, Diverticulitis, Homicidal, Suicidal, threat to staff... and all critical care pts) @ -Low likelihood - Lab Data Result diagrams: 02/25/23 20:10 02/25/23 20:10 Lab Results 02/25/23 02/25/23 02/25/23 Range/Units 20:10 20:10 21:05 WBC 13.6 H (3.8-10.6) k/uL RBC 4.54 (3.80-5.40) m/uL Hgb 13.1 (11.4-16.0) gm/dL Hct 39.2 (34.0-46.0) % MCV 86.4 (80.0-100.0) fL MCH 28.8 (25.0-35.0) pg MCHC 33.4 (31.0-37.0) g/dL RDW 13.2 (11.5-15.5) % Plt Count 315 (150-450) k/uL MPV 7.8 Neutrophils % 75 % Lymphocytes % 17 % Monocytes % 3 % Eosinophils % 3 % Basophils % 1 % Neutrophils # 10.2 H (1.3-7.7) k/uL Lymphocytes # 2.3 (1.0-4.8) k/uL Monocytes # 0.5 (0-1.0) k/uL Eosinophils # 0.4 (0-0.7) k/uL Basophils # 0.1 (0-0.2) k/uL Sodium 136 L (137-145) mmol/L Potassium 4.8 (3.5-5.1) mmol/L Chloride 105 (98-107) mmol/L Carbon Dioxide 21 L (22-30) mmol/L Anion Gap 10 mmol/L BUN 16 (7-17) mg/dL Creatinine 0.67 (0.52-1.04) mg/dL Est GFR (CKD-EPI)AfAm >90 (>60 ml/min/1.73 sqM) Est GFR (CKD-EPI)NonAf >90 (>60 ml/min/1.73 sqM) Glucose 103 H (74-99) mg/dL Calcium 9.4 (8.4-10.2) mg/dL Total Bilirubin 0.4 (0.2-1.3) mg/dL AST 20 (14-36) U/L ALT 18 (4-34) U/L Alkaline Phosphatase 51 (38-126) U/L Total Protein 7.4 (6.3-8.2) g/dL Albumin 4.1 (3.5-5.0) g/dL Urine Color Colorless Urine Appearance Clear (Clear) Urine pH 6.0 (5.0-8.0) Ur Specific Humble 1.014 (1.001-1.035) Urine Protein Negative (Negative) Urine Glucose (UA) Negative (Negative) Urine Ketones Negative (Negative) Urine Blood Negative (Negative) Urine Nitrite Negative (Negative) Urine Bilirubin Negative (Negative) Urine Urobilinogen <2.0 (<2.0) mg/dL Ur Leukocyte Esterase Moderate H (Negative) Urine RBC 1 (0-5) /hpf Urine WBC 8 H (0-5) /hpf Ur Squamous Epith Cells 7 H (0-4) /hpf Amorphous Sediment Rare H (None) /hpf Urine Bacteria Rare H (None) /hpf Urine Mucus Moderate H (None) /hpf Urine Yeast (Budding) Occasional H (None) /hpf Urine HCG, Qual (Not Detectd) 02/25/23 Range/Units 21:05 WBC (3.8-10.6) k/uL RBC (3.80-5.40) m/uL Hgb (11.4-16.0) gm/dL Hct (34.0-46.0) % MCV (80.0-100.0) fL MCH (25.0-35.0) pg MCHC (31.0-37.0) g/dL RDW (11.5-15.5) % Plt Count (150-450) k/uL MPV Neutrophils % % Lymphocytes % % Monocytes % % Eosinophils % % Basophils % % Neutrophils # (1.3-7.7) k/uL Lymphocytes # (1.0-4.8) k/uL Monocytes # (0-1.0) k/uL Eosinophils # (0-0.7) k/uL Basophils # (0-0.2) k/uL Sodium (137-145) mmol/L Potassium (3.5-5.1) mmol/L Chloride (98-107) mmol/L Carbon Dioxide (22-30) mmol/L Anion Gap mmol/L BUN (7-17) mg/dL Creatinine (0.52-1.04) mg/dL Est GFR (CKD-EPI)AfAm (>60 ml/min/1.73 sqM) Est GFR (CKD-EPI)NonAf (>60 ml/min/1.73 sqM) Glucose (74-99) mg/dL Calcium (8.4-10.2) mg/dL Total Bilirubin (0.2-1.3) mg/dL AST (14-36) U/L ALT (4-34) U/L Alkaline Phosphatase (38-126) U/L Total Protein (6.3-8.2) g/dL Albumin (3.5-5.0) g/dL Urine Color Urine Appearance (Clear) Urine pH (5.0-8.0) Ur Specific Humble (1.001-1.035) Urine Protein (Negative) Urine Glucose (UA) (Negative) Urine Ketones (Negative) Urine Blood (Negative) Urine Nitrite (Negative) Urine Bilirubin (Negative) Urine Urobilinogen (<2.0) mg/dL Ur Leukocyte Esterase (Negative) Urine RBC (0-5) /hpf Urine WBC (0-5) /hpf Ur Squamous Epith Cells (0-4) /hpf Amorphous Sediment (None) /hpf Urine Bacteria (None) /hpf Urine Mucus (None) /hpf Urine Yeast (Budding) (None) /hpf Urine HCG, Qual Not Detected (Not Detectd) Disposition Clinical Impression: Right flank pain, Constipation Disposition: HOME SELF-CARE Condition: Stable Instructions (If sedation given, give patient instructions): Constipation (ED), High Fiber Diet (ED) Additional Instructions: Please return if symptoms worsen or persist Is patient prescribed a controlled substance at d/c from ED?: No Referrals: None,Stated [Primary Care Provider] - 1-2 days Time of Disposition: 22:47
[2023-02-25 20:42] LABS: Basophils # (A) 0.1 k/uL (0-0.2); Basophils % (A) 1 %; Eosinophils # (A) 0.4 k/uL (0-0.7); Eosinophils % (A) 3 %; HCT 39.2 % (34.0-46.0); HGB 13.1 gm/dL (11.4-16.0); Lymphocytes # (A) 2.3 k/uL (1.0-4.8); Lymphocytes % (A) 17 %; MCH 28.8 pg (25.0-35.0); MCHC 33.4 g/dL (31.0-37.0); MCV 86.4 fL (80.0-100.0); Mean Platelet Volume 7.8; Monocytes # (A) 0.5 k/uL (0-1.0); Monocytes % (A) 3 %; Neutrophils # (A) 10.2 k/uL (1.3-7.7); Neutrophils % (A) 75 %; Platelet Count 315 k/uL (150-450); RBC 4.54 m/uL (3.80-5.40); RDW 13.2 % (11.5-15.5); WBC 13.6 k/uL (3.8-10.6)
[2023-02-25 20:55] LABS: ALT 18 U/L (4-34); AST 20 U/L (14-36); African American GFR (CKD) >90 (>60 ml/min/1.73 sqM); Albumin 4.1 g/dL (3.5-5.0); Alkaline Phosphatase 51 U/L (38-126); Anion Gap 10 mmol/L; Blood Urea Nitrogen 16 mg/dL (7-17); Calcium 9.4 mg/dL (8.4-10.2); Carbon Dioxide 21 mmol/L (22-30); Chloride 105 mmol/L (98-107); Glucose 103 mg/dL (74-99); Non-African American GFR(CKD) >90 (>60 ml/min/1.73 sqM); Potassium 4.8 mmol/L (3.5-5.1); Sodium 136 mmol/L (137-145); Total Bilirubin 0.4 mg/dL (0.2-1.3); Total Protein 7.4 g/dL (6.3-8.2)
[2023-02-25 21:47] LABS: Amorphous Sediment,Urine Rare /hpf; Appearance,Urine Clear (Clear); Bacteria,Urine Rare /hpf; Bilirubin,Urine Negative (Negative); Blood,Urine Negative (Negative); Budding Yeast,Urine Occasional /hpf; Color,Urine Colorless; Glucose,Urine (UA) Negative (Negative); Ketones,Urine Negative (Negative); Leukocyte Esterase,Urine Moderate (Negative); Mucus,Urine Moderate /hpf; Nitrite,Urine Negative (Negative); Protein,Urine Negative (Negative); RBC,Urine 1 /hpf (0-5); Specific Gravity,Urine 1.014 (1.001-1.035); Squamous Epithelial Cell,Urine 7 /hpf (0-4); Urobilinogen,Urine <2.0 mg/dL (<2.0); WBC,Urine 8 /hpf (0-5)
--- NOTE | 2023-02-25 22:23 | CT ---
EXAMINATION TYPE: CT abdomen pelvis wo con CT DLP: 538.7 mGycm, Automated exposure control for dose reduction was used. DATE OF EXAM: 02/25/2023 9:45 PM COMPARISON: None. CLINICAL INDICATION:Female, 32 years old with history of RLQ pain; RLQ abdominal pain onset today. TECHNIQUE: Axial CT of the ;CT abdomen pelvis wo con;Sagittal and coronal reformats were created on a separate workstation. Contrast used:(none if empty) Oral contrast used: without Oral Contrast (none if empty) FINDINGS: LOWER CHEST: Unremarkable ABDOMEN LIVER: Unremarkable GALLBLADDER AND BILE DUCTS: Unremarkable. PANCREAS: Unremarkable. SPLEEN: Unremarkable. ADRENAL GLANDS: Unremarkable. KIDNEYS AND URETERS: No evidence of hydronephrosis or renal calculus. The ureters are unremarkable. PELVIS BLADDER: Unremarkable REPRODUCTIVE: Unremarkable. ABDOMEN & PELVIS STOMACH AND BOWEL: No evidence of bowel obstruction. The cecum is flipped medially in upwards. There is moderate amount of stool within the colon and the cecum is more medially compared to the descendin g colon. PERITONEUM/RETROPERITONEUM: No evidence of pneumoperitoneum or free fluid. VASCULATURE: No evidence of aortic aneurysm. MUSCULOSKELETAL: No acute osseous abnormalities LYMPH NODES: No gross evidence for lymphadenopathy. SOFT TISSUE/ABDOMINAL WALL: Fat-containing umbilical hernia. IMPRESSION: 1. No evidence of obstructive uropathy or renal calculus. The appendix is normal. 2. Moderate amount of stool within the right colon.
[2023-02-25 22:39] VITALS: BP 133/85; PULSE 78; TEMP 98
== END 2023-02-25 23:00 | disposition home or self-care (01) ==
LOC: EC 19:23
DX: K59.00 Constipation, unspecified (principal); Z79.82 Long term (current) use of aspirin; Z88.0 Allergy status to penicillin; Z88.2 Allergy status to sulfonamides; Z88.1 Allergy status to other antibiotic agents; Z88.8 Allergy status to other drugs, medicaments and biological substances
CPT/HCPCS: 36415; 80053; 85025; 81001; 81025; 74176; 99284; 96374; 96375; 96361; J2405; J1885